=== PATIENT | female | born 1995 | race African-American/Black ===

== ENCOUNTER 2023-11-26 15:27 | Emergency (ER) | payer BC ==
[~2023-11-26] VITALS: Ht 170.2 cm; Wt 64.4 kg
[2023-11-26] MEDS ORDERED: ACETAMINOPHEN ES 500 MG TABLET ONE (16:19)
[2023-11-26] MEDS: ACETAMINOPHEN ES 500 MG TABLET PO ONE (16:22)
[2023-11-26 16:23] VITALS: BP 133/71; TEMP 98.4; O2SAT 100
== END 2023-11-26 16:24 | disposition home or self-care (01) ==
LOC: ER 15:31
DX: O26.899 Other specified pregnancy related conditions, unspecified trimester (principal); S13.9XXA Sprain of joints and ligaments of unspecified parts of neck, initial encounter; S33.5XXA Sprain of ligaments of lumbar spine, initial encounter; Z3A.00 Weeks of gestation of pregnancy not specified; V49.9XXA Car occupant (driver) (passenger) injured in unspecified traffic accident, initial encounter; Y93.89 Activity, other specified; Y92.89 Other specified places as the place of occurrence of the external cause; Y99.8 Other external cause status